=== PATIENT | male | born 1955 | race Caucasian/White ===

== ENCOUNTER 2016-09-20 14:02 | Emergency (ER) | payer OTHER ==
[2016-09-20 14:15] VITALS: TEMP 97.8; BMI 34.0
[2016-09-20 16:22] LABS: BASOPHIL 0.7 % (0-2.0); EOSINOPHIL 0.8 % (0-4.5); MCH 29.3 pg (25.7-33.7); MCHC 32.7 g/dl (32.0-35.9); MEAN CELL VOLUME 89.5 fl (80-96); MEAN PLT VOLUME 7.3 fl (7.5-11.1); NEUTROPHILS 70.8 % (42.8-82.8); PLATELET COUNT 242 K/MM3 (134-434); RDW 14.1 % (11.9-15.9); WHITE BLOOD COUNT 8.7 K/mm3 (4.0-10.0)
[2016-09-20 17:10] LABS: ALBUMIN 3.8 g/dl (3.4-5.0); ANION GAP 7 (8-16); CO2 28 mmol/L (21-32); COCKROFT - GAULT 141.27; CREATININE 0.8 mg/dL (0.7-1.3); GLUCOSE,RANDOM 78 mg/dL (74-106); SGOT/AST 21 U/L (15-37); SGPT/ALT 29 U/L (12-78)
[2016-09-20 17:20] LABS: ALK PHOS 63 U/L (45-117); BILIRUBIN,TOTAL 0.4 mg/dL (0.2-1.0); TOT PROT 6.9 g/dl (6.4-8.2); TROPONIN I < 0.02 ng/ml (0.00-0.05)
[2016-09-20] MEDS ORDERED: MECLIZINE HCL 25 MG TABLET (FP) PO ONE (17:25)
--- NOTE | 2016-09-20 17:25 | PDOC ---
History of Present Illness <Tereza Rodriguez - Last Filed: 09/20/16 18:57> - History of Present Illness Initial Comments: 09/20/16 19:46 Patient is a 61 year old male presenting to the ED with significant medical hx of borderline HLD, HTN and nephrolithiasis who is presenting to the ED with several days of dizziness and nausea. Patient states that for the past few days , he would wake up in the morning with dizziness that felt as if the room was spinning. He reports that his dizziness would subside after he sat up and closed his eyes for a moment. Afterwards the patient would develop some nausea but denies any vomiting or diarrhea. The patient states that he went to an urgent care center yesterday and the day before, but due to the holiday, they were unable to perform receive results from tests in a timely fashion and they were referred to the ED. Patient denies shortness of breath, chest pain, or syncope. He came to the ED today because this morning he woke up feeling lightheaded. The patient does not have a PCP at this time because of changes in his insurance. Social Hx: Denies tobacco use. Occasional alcohol use. Surgical Hx: tonsillectomy, right ankle ligament sx <Rosa Vasquez - Last Filed: 09/20/16 19:48> - General Chief Complaint: Lightheaded Stated Complaint: DIZZINESS Time Seen by Provider: 09/20/16 16:32 Past History - Past Medical History HTN: Yes Hypercholesterolemia: Yes (BORDER LINE) Kidney Stones: Yes - Surgical History Orthopedic Surgery: Yes (40 yrs ago right ankle surgery) - Family Disease History Family Disease History: Heart Disease: Father - Immunization History Immunization Up to Date: Yes - Psycho/Social/Smoking Cessation Hx Anxiety: No Suicidal Ideation: No Smoking History: Never smoked Have you smoked in the past 12 months: No Information on smoking cessation initiated: No Hx Alcohol Use: No Drug/Substance Use Hx: No Substance Use Type: None <Tereza Rodriguez - Last Filed: 09/20/16 18:57> <Rosa Vasquez - Last Filed: 09/20/16 19:48> - Past Medical History Allergies/Adverse Reactions: Allergies Allergy/AdvReac Type Severity Reaction Status Date / Time Penicillins Allergy Rash Verified 09/20/16 14:11 Home Medications: Ambulatory Orders Azithromycin [Zithromax -] 250 mg PO UTDICT #6 tab 09/20/16 Multivitamin [Poly-Vitamin] 1 each PO DAILY 09/20/16 Review of Systems - Review of Systems Comments:: 09/20/16 19:47 CONSTITUTIONAL: Absent: fever, chills, diaphoresis, generalized weakness, malaise, loss of appetite HEENT: Absent: rhinorrhea, nasal congestion, throat pain, throat swelling, difficulty swallowing, mouth swelling, ear pain, eye pain, visual changes CARDIOVASCULAR: Absent: chest pain, syncope, palpitations, irregular heart rate, lightheadedness , peripheral edema RESPIRATORY: Absent: cough, shortness of breath, dyspnea with exertion, orthopnea, wheezing, stridor, hemoptysis GASTROINTESTINAL: Present: nausea Absent: abdominal pain, abdominal distension, vomiting, diarrhea, constipation, melena, hematochezia GENITOURINARY: Absent: dysuria, frequency, urgency, hesitancy, hematuria, flank pain, genital pain MUSCULOSKELETAL: Absent: myalgia, arthralgia, joint swelling SKIN: Absent: rash, itching, pallor HEMATOLOGIC/IMMUNOLOGIC: Absent: easy bleeding, easy bruising, lymphadenopathy, frequent infections ENDOCRINE: Absent: unexplained weight gain, unexplained weight loss, heat intolerance, cold intolerance NEUROLOGIC: Present: dizziness Absent: headache, focal weakness or paresthesia, unsteady gait, seizure, mental status changes, bladder or bowel incontinence. PSYCHIATRIC: Absent: anxiety, depression, suicidal or homicidal ideation, hallucinations <Rosa Vasquez - Last Filed: 09/20/16 19:48> *Physical Exam - Vital Signs Last Vital Signs Temp Pulse Resp BP Pulse Ox 97.8 F 86 18 138/93 100 09/20/16 14:11 09/20/16 14:11 09/20/16 14:11 09/20/16 14:11 09/20/16 14:11 <Tereza Rodriguez - Last Filed: 09/20/16 18:57> - Vital Signs Last Vital Signs Temp Pulse Resp BP Pulse Ox 97.8 F 87 18 140/88 99 09/20/16 14:11 09/20/16 19:15 09/20/16 19:15 09/20/16 19:15 09/20/16 19:15 - Physical Exam Comments: 09/20/16 19:48 GENERAL: Well developed, well nourished. Awake and alert. No acute distress. HEENT: Normocephalic, atraumatic. PERRLA, EOMI. No conjunctival pallor. Sclera are non- icteric. Moist mucous membranes. Oropharynx is clear. NECK: Supple. Full ROM. No JVD. Carotid pulses 2+ and symmetric, without bruits. No thyromegaly. No lymphadenopathy. CARDIOVASCULAR: Regular rate and rhythm. No murmurs, rubs, or gallops. Distal pulses are 2+ and symmetric. PULMONARY: No evidence of respiratory distress. Lungs clear to auscultation bilaterally. No wheezing, rales or rhonchi. ABDOMINAL: Soft. Non-tender. Non-distended. No rebound or guarding. No organomegaly. Normoactive bowel sounds. MUSCULOSKELETAL: Normal range of motion at all joints. No bony deformities or tenderness. No CVA tenderness. EXTREMITIES: No cyanosis. No clubbing. No edema. No calf tenderness. SKIN: Warm and dry. Normal capillary refill. No rashes. No jaundice. NEUROLOGICAL: Alert, awake, appropriate. Cranial nerves 2-12 intact. Normal speech. Gait is normal without ataxia. PSYCHIATRIC: Cooperative. Good eye contact. Appropriate mood and affect. <Rosa Vasquez - Last Filed: 09/20/16 19:48> ED Treatment Course - LABORATORY CBC & Chemistry Diagram: 09/20/16 16:11 09/20/16 16:11 - ADDITIONAL ORDERS Additional order review: Laboratory Results 09/20/16 16:11 Sodium 139 Potassium 4.2 Chloride 104 Carbon Dioxide 28 Anion Gap 7 L BUN 16 Creatinine 0.8 Creat Clearance w eGFR > 60 Random Glucose 78 Calcium 9.0 Total Bilirubin 0.4 AST 21 ALT 29 Alkaline Phosphatase 63 Creatine Kinase 110 Troponin I < 0.02 Total Protein 6.9 Albumin 3.8 TSH 0.90 09/20/16 16:11 RBC 4.89 MCV 89.5 MCHC 32.7 RDW 14.1 MPV 7.3 L Neutrophils % 70.8 Lymphocytes % 21.0 Monocytes % 6.7 Eosinophils % 0.8 Basophils % 0.7 <Tereza Rodriguez - Last Filed: 09/20/16 18:57> - LABORATORY CBC & Chemistry Diagram: 09/20/16 16:11 09/20/16 16:11 - ADDITIONAL ORDERS Additional order review: Laboratory Results 09/20/16 09/20/16 17:25 16:11 Sodium 139 Potassium 4.2 Chloride 104 Carbon Dioxide 28 Anion Gap 7 L BUN 16 Creatinine 0.8 Creat Clearance w eGFR > 60 Random Glucose 78 Calcium 9.0 Total Bilirubin 0.4 AST 21 ALT 29 Alkaline Phosphatase 63 Creatine Kinase 110 Troponin I < 0.02 Total Protein 6.9 Albumin 3.8 TSH 0.90 Urine Color Ltyellow Urine Appearance Clear Urine pH 6.0 Ur Specific [place] 1.015 Urine Protein Negative Urine Glucose (UA) Negative Urine Ketones 1+ H Urine Blood Negative Urine Nitrite Negative Urine Bilirubin Negative Urine Urobilinogen Negative Ur Leukocyte Esterase Negative 09/20/16 16:11 RBC 4.89 MCV 89.5 MCHC 32.7 RDW 14.1 MPV 7.3 L Neutrophils % 70.8 Lymphocytes % 21.0 Monocytes % 6.7 Eosinophils % 0.8 Basophils % 0.7 - Medications Given in the ED: ED Medications Discontinued Medications Generic Name Dose Route Start Last Admin Trade Name Fabiana PRN Reason Stop Dose Admin Meclizine HCl 25 mg 09/20/16 17:25 09/20/16 17:30 Antivert - PO 09/20/16 17:26 Not Given ONCE ONE <Rosa Vasquez - Last Filed: 09/20/16 19:48> *DC/Admit/Observation/Transfer <Tereza Rodriguez - Last Filed: 09/20/16 18:57> - Attestations Scribe Attestion: 09/20/16 19:48 Documentation prepared by Rosa Vasquez, acting as medical receptionist medical assistant for Tereza Rodriguez MD. <Rosa Vasquez - Last Filed: 09/20/16 19:48> Diagnosis at time of Disposition: Vertigo Sinusitis, acute maxillary Qualifiers: Recurrence: non-recurrent Qualified Code(s): J01.00 - Acute maxillary sinusitis , unspecified - Discharge Dispostion Disposition: HOME Condition at time of disposition: Stable - Prescriptions Prescriptions: Azithromycin [Zithromax -] 250 mg PO UTDICT #6 tab - Patient Instructions Printed Discharge Instructions: DI for Vertigo, DI for Sinusitis Additional Instructions: [facility]
[2016-09-20 17:36] LABS: URINE APPEARANCE CLEAR; URINE BILIRUBIN NEGATIVE (NEGATIVE); URINE BLOOD NEGATIVE (NEGATIVE); URINE COLOR LTYELLOW; URINE GLUCOSE (UA) NEGATIVE (NEGATIVE); URINE KETONE 1+ (NEGATIVE); URINE LEUK ESTERASE NEGATIVE (NEGATIVE); URINE NITRITE NEGATIVE (NEGATIVE); URINE PROTEIN NEGATIVE (NEGATIVE); URINE UROBILINOGEN NEGATIVE E.U./dl (0.2-1.0)
[2016-09-20] MEDS ORDERED: MECLIZINE HCL 25 MG TABLET (FP) ONE (17:36)
[2016-09-20 19:18] VITALS: BP 140/88; PULSE 87
--- NOTE | 2016-09-21 14:13 | EKG ---
Test Reason : Blood Pressure : / mmHG Vent. Rate : 079 BPM Atrial Rate : 079 BPM P-R Int : 156 ms QRS Dur : 094 ms QT Int : 372 ms P-R-T Axes : 039 020 037 degrees QTc Int : 426 ms NORMAL SINUS RHYTHM NORMAL ECG NO PREVIOUS ECGS AVAILABLE Confirmed by KAVITA DOMINGUEZ MD ([id number]) on 09/21/2016 2:13:51 PM Referred By: Confirmed By:KAVITA DOMINGUEZ MD
== END 2016-09-20 19:16 | disposition home or self-care (01) ==
LOC: JER 14:02
DX: J01.00 Acute maxillary sinusitis, unspecified (principal); I10 Essential (primary) hypertension; E78.5 Hyperlipidemia, unspecified; Z87.442 Personal history of urinary calculi
CPT/HCPCS: 36415; 70450-TC; 80053; 81003; 82550; 84443; 84484; 85025; 93005; 93010; 99283-25